=== PATIENT | male | born 1955 | race Caucasian/White ===

== ENCOUNTER → 2021-05-11 | Outpatient (CLI) | payer OTHER ==
[~2021-05-11] MED LIST: PEG-3350 SOLU4000 ML
== END | disposition home or self-care (01) ==
LOC: LAB 11:24 → LAB SHORT 11:24
DX: L57.0 Actinic keratosis (principal); C44.319 Basal cell carcinoma of skin of other parts of face
CPT/HCPCS: 88305

== ENCOUNTER 2024-04-09 07:15 | Emergency (ER) | payer OTHER ==
[~2024-04-09] VITALS: Ht 172.7 cm; Wt 104.3 kg
[2024-04-09 07:28] VITALS: BP 148/91
[2024-04-09] MEDS ORDERED: CELE100 PO (07:41)
[2024-04-09] MEDS ORDERED: AMLODIPINE BESYL5 MG PO (07:41)
[2024-04-09] MEDS ORDERED: HYDROCODONE-AC1 EA19 PO (07:42)
[2024-04-09] MEDS ORDERED: PRED20 PO (07:42)
== END 2024-04-09 09:31 | disposition home or self-care (01) ==
LOC: ER 07:15
DX: M54.17 Radiculopathy, lumbosacral region (principal); Z79.899 Other long term (current) drug therapy; Z79.52 Long term (current) use of systemic steroids
CPT/HCPCS: 99283